=== PATIENT | female | born 1985 | race Two or more races ===

== ENCOUNTER → 2024-01-24 | Outpatient (CLI) | payer MEDICAID ==
[~2024-01-24] MED LIST: IBUP80TA PO
== END ==
LOC: M PLAIMG 12:47
PROVIDERS: ATTEND Pain Medicine Interventional Pain Medicine
DX: M47.812 Spondylosis without myelopathy or radiculopathy, cervical region (principal)

== ENCOUNTER → 2024-06-05 | Outpatient (REF) | LOC: M PLAIMG 13:17 | PROVIDERS: ATTEND Internal Medicine | DX: R52 Pain, unspecified (principal) ==